=== PATIENT | female | born 1955 | race Caucasian/White ===

== ENCOUNTER 2017-10-31 13:47 | Inpatient (IN) | payer BC ==
[2017-10-31 15:26] LABS: HEMATOCRIT 42.2 % (37.0-47.0); HEMOGLOBIN 14.1 g/dl (12.0-16.0); MEAN CORPUSCULAR HEMOGLOBIN 29.7 pg (29.0-33.0); MEAN CORPUSCULAR HGB CONC 33.4 g/dl (32.0-37.0); MEAN CORPUSCULAR VOLUME 88.8 fl (82.0-101.0); MEAN PLATELET VOLUME 10.8 fl (7.4-10.4); PLATELET COUNT 195 10^3/UL (140-415); RED BLOOD COUNT 4.75 10^6/ul (4.20-5.40); RED CELL DISTRIBUTION WIDTH 12.8 % (11.5-14.5)
[2017-10-31 15:26] LABS: WHITE BLOOD COUNT 8.6 10^3/ul (4.8-10.8)
[2017-10-31] MEDS: VANCOMYCIN 1 GM (PMX) 250 ML IVPB (15:27)
[2017-10-31 15:32] LABS: ADD MAN DIFF? YES; POSITIVE DIFF @See below
[2017-10-31] MEDS: SODIUM CHLORIDE 0.9% 1L BAG IV* (15:32)
[2017-10-31] MEDS: KETOROLAC 15 MG INJ IV (15:37)
[2017-10-31 15:38] LABS: INR 0.97
[2017-10-31] MEDS: CIPROFLOXACIN 400MG/D5W 200 ML IVPB (15:38)
[2017-10-31 15:39] LABS: PARTIAL THROMBOPLASTIN TIME 26.5 Sec (25.0-35.0)
[2017-10-31 15:42] LABS: LACTIC ACID 1.7 mmol/L (0.5-2.0)
[2017-10-31 15:42] LABS: ALANINE AMINOTRANSFERASE 31 IU/L (13-69); ALBUMIN 4.6 g/dl (3.3-4.9); ALBUMIN/GLOBULIN RATIO 1.21; ALKALINE PHOSPHATASE 109 IU/L (42-121); ANION GAP 16 (8-16); ASPARTATE AMINO TRANSFERASE 24 IU/L (15-46); BLOOD UREA NITROGEN 20 mg/dl (7-20); CALCIUM 9.6 mg/dl (8.4-10.2); CARBON DIOXIDE 29 mmol/L (21-31); CHLORIDE 98 mmol/L (97-110); CREATININE 0.83 mg/dl (0.44-1.00); GLUCOSE 122 mg/dl (70-220); POTASSIUM 3.8 mmol/L (3.5-5.1); SODIUM 139 mmol/L (135-144); TOTAL PROTEIN 8.4 g/dl (6.1-8.1)
[2017-10-31 15:53] LABS: BAND NEUTROPHILS % (M) 24 % (0-4); LYMPHOCYTES #M 0.4 10^3/ul (0.8-2.9); LYMPHOCYTES % (M) 5 % (15-51); PLATELET ESTIMATE NORMAL; SEG NEUT #M 6.3 10^3/ul (1.6-7.5); SEGMENTED NEUTROPHILS (M) % 71 % (39-77); SMUDGE%M 2 % (0-0)
[2017-10-31 15:58] LABS: TROPONIN-I < 0.012 ng/ml (0.000-0.120)
[2017-10-31] MEDS: CLINDAMYCIN 900 MG/D5W (PMX) 50 ML IVPB (16:49)
[2017-10-31 16:55] LABS: ADD UMIC YES; UR ASCORBIC ACID NEGATIVE (NEGATIVE); UR BILIRUBIN (Dip) NEGATIVE (NEGATIVE); UR BLOOD (Dip) 2+ mg/dL (NEGATIVE); UR CLARITY CLEAR (CLEAR); UR COLOR STRAW (YELLOW); UR GLUCOSE (Dip) NEGATIVE (NEGATIVE); UR KETONES (Dip) NEGATIVE (NEGATIVE); UR LEUKOCYTE ESTERASE (Dip) NEGATIVE Leu/ul (NEGATIVE); UR NITRITE (Dip) NEGATIVE (NEGATIVE); UR RBC 5 /HPF (0-5); UR SPECIFIC GRAVITY (Dip) 1.009 (1.003-1.030); UR TOTAL PROTEIN (Dip) NEGATIVE (NEGATIVE); UR UROBILINOGEN (Dip) NEGATIVE (NEGATIVE); UR WBC 1 /HPF (0-5)
[2017-10-31 17:48] LABS: LACTIC ACID 2.2 mmol/L (0.5-2.0)
[2017-10-31] MEDS ORDERED: ONDANSETRON 4 MG INJ IV (19:00)
[2017-10-31] MEDS ORDERED: ACETAMINOPHEN 325 MG TAB PO (19:00)
[2017-10-31] MEDS ORDERED: NACL 0.9% 3 ML SYG IV (19:30)
[2017-10-31] MEDS ORDERED: HYDROCODONE/APAP (5/325) TAB PO (19:30)
[2017-10-31] MEDS ORDERED: IBUPROFEN 600 MG TAB PO (19:30)
[2017-10-31] MEDS: SOD CHLORIDE 0.9% 1,000 ML IV ×2 (20:06→20:15)
[2017-10-31 20:10] LABS: LACTIC ACID 2.2 mmol/L (0.5-2.0)
[2017-10-31 20:30] LABS: THYROID STIMULATING HORMONE 0.668 MIU/L (0.465-4.680)
[2017-10-31] MEDS: CLINDAMYCIN 150 MG CAP PO (20:31)
[2017-11-01] MEDS: CLINDAMYCIN 150 MG CAP PO ×2 (01:11→06:19)
[2017-11-01 06:52] LABS: HEMATOCRIT 36.4 % (37.0-47.0); HEMOGLOBIN 12.5 g/dl (12.0-16.0); MEAN CORPUSCULAR HEMOGLOBIN 30.3 pg (29.0-33.0); MEAN CORPUSCULAR HGB CONC 34.3 g/dl (32.0-37.0); MEAN CORPUSCULAR VOLUME 88.3 fl (82.0-101.0); MEAN PLATELET VOLUME 10.4 fl (7.4-10.4); PLATELET COUNT 170 10^3/UL (140-415); RED BLOOD COUNT 4.12 10^6/ul (4.20-5.40); RED CELL DISTRIBUTION WIDTH 13.3 % (11.5-14.5)
[2017-11-01 06:52] LABS: WHITE BLOOD COUNT 17.3 10^3/ul (4.8-10.8)
[2017-11-01 06:54] LABS: ADD MAN DIFF? YES; POSITIVE DIFF @See below
[2017-11-01] MEDS ORDERED: VANCOMYCIN IV PER PHARMACY XX (07:00)
[2017-11-01 07:20] LABS: LACTIC ACID 1.5 mmol/L (0.5-2.0)
[2017-11-01 07:38] LABS: ANION GAP 13 (8-16); BLOOD UREA NITROGEN 14 mg/dl (7-20); CARBON DIOXIDE 24 mmol/L (21-31); CHLORIDE 107 mmol/L (97-110); CREATININE 0.79 mg/dl (0.44-1.00); GLUCOSE 111 mg/dl (70-220); MAGNESIUM 1.5 mg/dl (1.7-2.5); PHOSPHORUS 2.8 mg/dl (2.5-4.9); POTASSIUM 3.4 mmol/L (3.5-5.1); SODIUM 141 mmol/L (135-144)
[2017-11-01] MEDS: ACETAMINOPHEN 325 MG TAB PO (08:44)
[2017-11-01] MEDS: HYDROCHLOROTHIAZIDE 12.5 MG CAP PO (08:44)
[2017-11-01] MEDS: VANCOMYCIN 1.5 GM in SOD CHLORIDE 0.9% 250 ML IVPB (08:44)
[2017-11-01] MEDS: ENOXAPARIN 40 MG/0.4 ML SYG SC (08:45)
[2017-11-01] MEDS: LOSARTAN 50 MG TAB PO (08:45)
[2017-11-01] MEDS ORDERED: METOPROLOL 50 MG TAB PO (09:00)
[2017-11-01 09:15] LABS: ANISOCYTOSIS 1+ (0-0); BAND NEUTROPHILS #M 5.3 10^3/ul (0.0-0.6); BAND NEUTROPHILS % (M) 31 % (0-4); LYMPHOCYTES % (M) 6 % (15-51); MICROCYTOSIS 1+ (0-0); MONOCYTE #M 0.1 10^3/ul (0.3-0.9); MONOCYTES % (M) 1 % (0-11); PLATELET ESTIMATE NORMAL; POLYCHROMASIA 2+ (0-0); REACTIVE LYMPHOCYTES #M 0.1 10^3/ul (0.0-0.0); REACTIVE LYMPHOCYTES% (M) 1 % (0-0); SEG NEUT #M 11.5 10^3/ul (1.6-7.5); SEGMENTED NEUTROPHILS (M) % 61 % (39-77); SMUDGE%M 2 % (0-0)
[2017-11-01] MEDS: ONDANSETRON 4 MG TAB PO (09:21)
[2017-11-01] MEDS: MAGNESIUM OXIDE 400 MG TAB PO (10:43)
[2017-11-01] MEDS: POTASSIUM CHLORIDE (SR) 20 MEQ TAB PO (10:44)
[2017-11-01] MEDS: LINEZOLID 600 MG/D5W (PMX) 300 ML IVPB ×2 (12:33→23:37)
[2017-11-01] MEDS ORDERED: VANCOMYCIN 1 GM 250 ML IVPB (21:00)
[2017-11-02] MEDS: LINEZOLID 600 MG/D5W (PMX) 300 ML IVPB ×2 (08:40→20:22)
[2017-11-02] MEDS: HYDROCHLOROTHIAZIDE 12.5 MG CAP PO (08:40)
[2017-11-02] MEDS: LOSARTAN 50 MG TAB PO (08:40)
[2017-11-02] MEDS: ENOXAPARIN 40 MG/0.4 ML SYG SC (08:42)
[2017-11-02 11:50] LABS: ADD MAN DIFF? NO
[2017-11-02 11:58] LABS: BASOPHILS % 0.2 % (0.0-2.0); EOSINOPHILS # 0.1 10^3/ul (0.0-0.5); EOSINOPHILS % 0.5 % (0.0-7.0); HEMATOCRIT 37.4 % (37.0-47.0); HEMOGLOBIN 12.7 g/dl (12.0-16.0); LYMPHOCYTES # 1.7 10^3/ul (0.8-2.9); LYMPHOCYTES % 18.2 % (15.0-51.0); MEAN CORPUSCULAR HEMOGLOBIN 29.9 pg (29.0-33.0); MEAN PLATELET VOLUME 10.7 fl (7.4-10.4); MONOCYTE # 0.5 10^3/ul (0.3-0.9); MONOCYTES % 5.2 % (0.0-11.0); NEUTROPHILS % 75.4 % (39.0-77.0); PLATELET COUNT 163 10^3/UL (140-415); RED BLOOD COUNT 4.25 10^6/ul (4.20-5.40); RED CELL DISTRIBUTION WIDTH 13.4 % (11.5-14.5)
[2017-11-02 11:58] LABS: WHITE BLOOD COUNT 9.3 10^3/ul (4.8-10.8)
[2017-11-02] MEDS: SOD CHLORIDE 0.9% 100 ML (18:24)
[2017-11-02] MEDS: IOHEXOL 300MG/ML 150 ML BTL (18:24)
[2017-11-03 07:09] LABS: ADD MAN DIFF? NO
[2017-11-03 07:27] LABS: BASOPHILS % 0.3 % (0.0-2.0); EOSINOPHILS # 0.1 10^3/ul (0.0-0.5); EOSINOPHILS % 1.4 % (0.0-7.0); HEMATOCRIT 34.4 % (37.0-47.0); HEMOGLOBIN 11.7 g/dl (12.0-16.0); LYMPHOCYTES # 1.7 10^3/ul (0.8-2.9); LYMPHOCYTES % 24.5 % (15.0-51.0); MEAN CORPUSCULAR HEMOGLOBIN 30.2 pg (29.0-33.0); MEAN CORPUSCULAR VOLUME 88.7 fl (82.0-101.0); MEAN PLATELET VOLUME 11.1 fl (7.4-10.4); MONOCYTE # 0.5 10^3/ul (0.3-0.9); MONOCYTES % 7.2 % (0.0-11.0); NEUTROPHIL # 4.6 10^3/ul (1.6-7.5); NEUTROPHILS % 66.2 % (39.0-77.0); PLATELET COUNT 147 10^3/UL (140-415); RED BLOOD COUNT 3.88 10^6/ul (4.20-5.40); RED CELL DISTRIBUTION WIDTH 13.6 % (11.5-14.5)
[2017-11-03 07:47] LABS: ALBUMIN 3.2 g/dl (3.3-4.9); ANION GAP 13 (8-16); BLOOD UREA NITROGEN 11 mg/dl (7-20); CALCIUM 8.5 mg/dl (8.4-10.2); CARBON DIOXIDE 26 mmol/L (21-31); CHLORIDE 107 mmol/L (97-110); CREATININE 0.71 mg/dl (0.44-1.00); GLUCOSE 105 mg/dl (70-220); MAGNESIUM 1.9 mg/dl (1.7-2.5); PHOSPHORUS 3.5 mg/dl (2.5-4.9); POTASSIUM 3.7 mmol/L (3.5-5.1); SODIUM 142 mmol/L (135-144)
[2017-11-03] MEDS: HYDROCHLOROTHIAZIDE 12.5 MG CAP PO (08:26)
[2017-11-03] MEDS: ENOXAPARIN 40 MG/0.4 ML SYG SC (08:26)
[2017-11-03] MEDS: LINEZOLID 600 MG/D5W (PMX) 300 ML IVPB ×2 (08:26→20:38)
[2017-11-03] MEDS: LOSARTAN 50 MG TAB PO (08:26)
[2017-11-04 06:05] LABS: ADD MAN DIFF? NO
[2017-11-04 06:16] LABS: BASOPHILS % 0.3 % (0.0-2.0); EOSINOPHILS # 0.1 10^3/ul (0.0-0.5); EOSINOPHILS % 1.7 % (0.0-7.0); HEMATOCRIT 34.4 % (37.0-47.0); HEMOGLOBIN 11.5 g/dl (12.0-16.0); LYMPHOCYTES # 2.1 10^3/ul (0.8-2.9); LYMPHOCYTES % 30.1 % (15.0-51.0); MEAN CORPUSCULAR HEMOGLOBIN 29.4 pg (29.0-33.0); MEAN CORPUSCULAR HGB CONC 33.4 g/dl (32.0-37.0); MEAN PLATELET VOLUME 10.9 fl (7.4-10.4); MONOCYTE # 0.5 10^3/ul (0.3-0.9); MONOCYTES % 7.7 % (0.0-11.0); NEUTROPHIL # 4.2 10^3/ul (1.6-7.5); NEUTROPHILS % 59.8 % (39.0-77.0); PLATELET COUNT 184 10^3/UL (140-415); RED BLOOD COUNT 3.91 10^6/ul (4.20-5.40); RED CELL DISTRIBUTION WIDTH 13.4 % (11.5-14.5)
[2017-11-04 07:00] LABS: ALBUMIN 3.3 g/dl (3.3-4.9); ANION GAP 16 (8-16); BLOOD UREA NITROGEN 14 mg/dl (7-20); CALCIUM 8.6 mg/dl (8.4-10.2); CARBON DIOXIDE 27 mmol/L (21-31); CHLORIDE 103 mmol/L (97-110); CREATININE 0.75 mg/dl (0.44-1.00); GLUCOSE 101 mg/dl (70-220); MAGNESIUM 1.8 mg/dl (1.7-2.5); PHOSPHORUS 4.5 mg/dl (2.5-4.9); POTASSIUM 3.7 mmol/L (3.5-5.1); SODIUM 142 mmol/L (135-144)
[2017-11-04] MEDS: HYDROCHLOROTHIAZIDE 12.5 MG CAP PO (08:20)
[2017-11-04] MEDS: LOSARTAN 50 MG TAB PO (08:21)
[2017-11-04] MEDS: LINEZOLID 600 MG/D5W (PMX) 300 ML IVPB (08:21)
[2017-11-04] MEDS: ENOXAPARIN 40 MG/0.4 ML SYG SC (08:22)
[2017-11-04] MEDS: CLINDAMYCIN 600 MG/D5W (PMX) 50 ML IVPB ×2 (13:18→21:36)
[2017-11-05] MEDS: CLINDAMYCIN 600 MG/D5W (PMX) 50 ML IVPB ×3 (05:31→21:44)
[2017-11-05 05:46] LABS: ADD MAN DIFF? NO
[2017-11-05 05:55] LABS: BASOPHILS % 0.5 % (0.0-2.0); EOSINOPHILS # 0.2 10^3/ul (0.0-0.5); EOSINOPHILS % 2.5 % (0.0-7.0); HEMATOCRIT 36.2 % (37.0-47.0); HEMOGLOBIN 12.2 g/dl (12.0-16.0); LYMPHOCYTES # 2.6 10^3/ul (0.8-2.9); LYMPHOCYTES % 43.1 % (15.0-51.0); MEAN CORPUSCULAR HEMOGLOBIN 29.8 pg (29.0-33.0); MEAN CORPUSCULAR HGB CONC 33.7 g/dl (32.0-37.0); MEAN CORPUSCULAR VOLUME 88.5 fl (82.0-101.0); MEAN PLATELET VOLUME 10.5 fl (7.4-10.4); MONOCYTE # 0.5 10^3/ul (0.3-0.9); MONOCYTES % 8.7 % (0.0-11.0); NEUTROPHIL # 2.7 10^3/ul (1.6-7.5); NEUTROPHILS % 44.7 % (39.0-77.0); PLATELET COUNT 215 10^3/UL (140-415); RED BLOOD COUNT 4.09 10^6/ul (4.20-5.40); RED CELL DISTRIBUTION WIDTH 13.2 % (11.5-14.5)
[2017-11-05 05:55] LABS: WHITE BLOOD COUNT 6.1 10^3/ul (4.8-10.8)
[2017-11-05 06:37] LABS: ALBUMIN 3.5 g/dl (3.3-4.9); ANION GAP 14 (8-16); BLOOD UREA NITROGEN 16 mg/dl (7-20); CALCIUM 8.8 mg/dl (8.4-10.2); CARBON DIOXIDE 27 mmol/L (21-31); CHLORIDE 106 mmol/L (97-110); CREATININE 0.72 mg/dl (0.44-1.00); GLUCOSE 106 mg/dl (70-220); MAGNESIUM 1.9 mg/dl (1.7-2.5); PHOSPHORUS 4.8 mg/dl (2.5-4.9); POTASSIUM 3.8 mmol/L (3.5-5.1); SODIUM 143 mmol/L (135-144)
[2017-11-05] MEDS: HYDROCHLOROTHIAZIDE 12.5 MG CAP PO (09:37)
[2017-11-05] MEDS: LOSARTAN 50 MG TAB PO (09:37)
[2017-11-05] MEDS: ENOXAPARIN 40 MG/0.4 ML SYG SC (09:38)
[2017-11-06] MEDS: CLINDAMYCIN 600 MG/D5W (PMX) 50 ML IVPB (05:28)
[2017-11-06] MEDS: HYDROCHLOROTHIAZIDE 12.5 MG CAP PO (08:55)
[2017-11-06] MEDS: ENOXAPARIN 40 MG/0.4 ML SYG SC (08:55)
[2017-11-06] MEDS: LOSARTAN 50 MG TAB PO (08:55)
== END 2017-11-06 10:58 | disposition home health service (06) | DRG 872 ==
LOC: E/R 13:47 → PP2 18:38
DX: A41.9 Sepsis, unspecified organism (principal); L03.113 Cellulitis of right upper limb; Z68.41 Body mass index [BMI] 40.0-44.9, adult; E66.01 Morbid (severe) obesity due to excess calories; I10 Essential (primary) hypertension; I97.2 Postmastectomy lymphedema syndrome; Y84.8 Other medical procedures as the cause of abnormal reaction of the patient, or of later complication, without mention of misadventure at the time of the procedure; Y92.019 Unspecified place in single-family (private) house as the place of occurrence of the external cause; Z90.11 Acquired absence of right breast and nipple
CPT/HCPCS: 36415; 71045; 73200; 80048; 80053; 80069; 81001; 82962; 83036; 83605; 83735; 84100; 84443; 84484; 85025; 85610; 85730; 87040; 87045; 87086; 93005; 93306; 93971; 96361; 96374; 96375; 99285-25

== ENCOUNTER 2018-08-14 21:56 | Emergency (ER) | payer BC ==
[2018-08-15] MEDS: DIPHTH/TET/ACEL PERTUSS (ADULT) 0.5 ML VIAL IM* (02:06)
== END 2018-08-15 03:35 | disposition home or self-care (01) ==
LOC: FTE 21:56
DX: S91.331A Puncture wound without foreign body, right foot, initial encounter (principal); I10 Essential (primary) hypertension; W45.0XXA Nail entering through skin, initial encounter; Y92.9 Unspecified place or not applicable; Z85.3 Personal history of malignant neoplasm of breast
CPT/HCPCS: 73630; 90715; 96372; 99283-25